=== PATIENT | male | born 1960 | race Two or more races ===

== ENCOUNTER → 2017-03-11 | Outpatient (CLI) | payer OTHER ==
[~2017-03-11] MED LIST: SIMVASTATIN20 MG
== END | disposition home or self-care (01) ==
LOC: PPHC 15:08
DX: Z02.89 Encounter for other administrative examinations (principal)

== ENCOUNTER 2018-05-08 08:25 | Outpatient (CLI) | payer OTHER | END 2018-05-08 08:27 | disposition home or self-care (01) | LOC: RAD 08:25 | DX: I11.9 Hypertensive heart disease without heart failure (principal); R06.02 Shortness of breath ==

== ENCOUNTER 2018-05-27 14:18 | Outpatient (CLI) | payer OTHER | END 2018-05-27 14:30 | disposition home or self-care (01) | LOC: LAB 14:18 | DX: D51.3 Other dietary vitamin B12 deficiency anemia (principal); D50.8 Other iron deficiency anemias; D51.8 Other vitamin B12 deficiency anemias; D51.1 Vitamin B12 deficiency anemia due to selective vitamin B12 malabsorption with proteinuria; E06.3 Autoimmune thyroiditis; E03.8 Other specified hypothyroidism; I10 Essential (primary) hypertension ==